=== PATIENT | male | born 1965 | race African-American/Black ===

== ENCOUNTER → 2016-06-19 | Outpatient (CLI) | payer BC ==
[~2016-06-19] MED LIST: ARGI1CAP2 PO; ARGI1TAB PO; CEPH500C PO; MULT-513 PO; OMEG10007 PO; SOLI10TA2 PO; TROS1CAP2 PO; VITAMIN C PO
[2016-06-19 12:46] LABS: URINE APPEARANCE CLOUDY (CLEAR); URINE BILIRUBIN NEG (NEG); URINE COLOR YELLOW; URINE EPITHELIAL CELL AUTO 0-5 /lpf (0-5); URINE NITRITE NEG (NEG); URINE SPECIFIC GRAVITY 1.017 (1.000-1.030); UROBILINOGEN NEG (NEG)
[2016-06-19 12:55] LABS: MANUAL MICROSCOPIC REQUIRED? NO; REVIEW REQ? YES
== END | disposition home or self-care (01) ==
LOC: C.LABBFT 07:32
PROVIDERS: ATTEND Internal Medicine
DX: R39.9 Unspecified symptoms and signs involving the genitourinary system (principal)

== ENCOUNTER → 2016-07-03 | Day surgery (SDC) | payer BC ==
[~2016-07-03] VITALS: Ht 134.6 cm; Wt 54.5 kg
[~2016-07-03] MED LIST changes: -ARGI1TAB PO; +LIDOCAINE HCL 2% 2 ML VIAL (20MG/ML) ONE; +PROPOFOL IV EMULSION 10 MG/ML 20 ML VIAL IV ONE; +SODIUM CHLORIDE 0.9% 500ML 500 ML IV ONE; -SOLI10TA2 PO
[2016-07-03 14:13] VITALS: Ht 134.6 cm; Wt 54.5 kg
[2016-07-03 14:21] VITALS: TEMP 37.4
--- NOTE | 2016-07-03 15:14 | Endo History and Physical ---
History & Physical Date of Service: July 03, 2016. Chief Complaint: screening Referring Physician: Dr. García History of Present Illness 51 yo AAM who presents for screening colonoscopy. Past Medical History Kidney Disease Past Surgical History Hx Cardiac Surgery: No Hx Internal Defibrillator: No Hx Pacemaker: No Hx Abdominal Surgery: No Hx Post-Op Nausea and Vomiting: No Hx Cancer Surgery: No Hx Thoracic Surgery: Yes (TOTAL 4 BACK SURGERIES/LAMINECTOMIES/DECOMPRESSION FUSION WITH INSTRUM.) Hx Orthopedic: No Hx Urinary Tract Surgery: Yes (LITHOTRIPSY) Family History Colon CA Social History Smoking Status: Never Smoker Hx Substance Use: No Hx Alcohol Use: Yes (RARELY) Allergies Coded Allergies: No Known Allergies (Verified , 07/03/16) Current Medications Reported Home Medications Medications Dose Route/Sig Max Daily Dose Days Date Category [Vitamin C] 1 Tab PO QAM 07/02/16 Reported Trospium Chloride Er (Trospium Chloride) 60 Mg Cap 1 Cap PO HS 07/02/16 Reported Mvi With Minerals (Multivitamins/Minerals) Tab 1 Tab PO QAM 08/19/12 Reported [place]-3 (Fish Oil) 1 Ea Cap 1 Cap PO TID 08/19/12 Reported Vital Signs Weight (Kilograms): 54.55 Height (Feet): 4 Height (Inches): 5 Date Time Temp Pulse Resp B/P Pulse Ox O2 Delivery O2 Flow Rate FiO2 07/03/16 14:21 37.4 95 22 145/75 98 Room Air Physical Exam General Appearance: WD/WN, no apparent distress Respiratory/Chest: Auscultation: breath sounds normal Cardiovascular: Heart Auscultation: RRR Abdomen: Bowel Sounds: normal Inspection & Palpation: soft, non-distended, no tenderness, guarding & rebound Assessment and Plan Assessment: 51 yo AAM who presents for screening colonoscopy. Plan: Proceed with colonoscopy.
--- NOTE | 2016-07-03 15:21 | GI REPORT ---
Procedure Date: 07/03/2016 2:39 PM Procedure: Colonoscopy Indications: Screening for colorectal malignant neoplasm Medicines: Monitored Anesthesia Care Complications: No immediate complications. Estimated Blood Loss: Estimated blood loss: none. Procedure: Pre-Anesthesia Assessment: - Prior to the procedure, a History and Physical was performed, and patient medications and allergies were reviewed. The patient's tolerance of previous anesthesia was also reviewed. The risks and benefits of the procedure and the sedation options and risks were discussed with the patient. All questions were answered, and informed consent was obtained. Prior Anticoagulants: The patient has taken no previous anticoagulant or antiplatelet agents. ASA Grade Assessment: II - A patient with mild systemic disease. After reviewing the risks and benefits, the patient was deemed in satisfactory condition to undergo the procedure. After I obtained informed consent, the scope was passed under direct vision. Throughout the procedure, the patient's blood pressure, pulse, and oxygen saturations were monitored continuously. The On-site loaner was introduced through the anus with the intention of advancing to the ileum. The scope was advanced to the rectum before the procedure was aborted. Medications were given. The colonoscopy was performed without difficulty. The patient tolerated the procedure well. The quality of the bowel preparation was unsatisfactory. No anatomical landmarks were photographed. Findings: A large amount of copious quantities of semi-solid solid stool was found in the rectum, precluding visualization. Lavage of the area was performed, resulting in incomplete clearance with continued poor visualization. Impression: - Preparation of the colon was unsatisfactory. - Stool in the rectum. - No specimens collected. Recommendation: - Resume previous diet. - Continue present medications. - No repeat colonoscopy, as patient has been unsuccessful with bowel prep on multiple occassions. Recommend yearly FIT testing for colorectal cancer surveillance. - Return to primary care physician as previously scheduled. Lan Mason DO 07/03/2016 3:21:28 PM This report has been signed electronically. Note Initiated On: 07/03/2016 2:39 PM I attest to the content of the Intraoperative Record and orders documented therein, exceptions below
--- NOTE | 2016-07-03 15:39 | Discharge Instructions ---
Endoscopy Patient Instructions Date / Procedure(s) Performed July 03, 2016. Colonoscopy Allergy Information Coded Allergies: No Known Allergies (Verified , 07/03/16) Discharge Date / Findings July 03, 2016. Poor bowel prep Medication Instructions OK to resume all medications today as prescribed Reported Home Medications Medications Dose Route/Sig Max Daily Dose Days Date Category [Vitamin C] 1 Tab PO QAM 07/02/16 Reported Trospium Chloride Er (Trospium Chloride) 60 Mg Cap 1 Cap PO HS 07/02/16 Reported Mvi With Minerals (Multivitamins/Minerals) Tab 1 Tab PO QAM 08/19/12 Reported [place]-3 (Fish Oil) 1 Ea Cap 1 Cap PO TID 08/19/12 Reported Provider Instructions Activity Restrictions - No exercising or heavy lifting for 24 hours. - Do not drink alcohol the day of the procedure. - Do not drive a car or operate machinery until the day after the procedure. - Do not make any important decisions or sign important papers in 24 hours after the procedure. Following Day: - Return to full activity which may include returning to work/school. Diet Start your diet with liquids and light foods (jello, soup, juice, toast). Then eat your usual diet if not nauseated. Treatment For Common After Affects For mild abdominal pain, bloating, or excessive gas: - Rest - Eat lightly - Lie on right side Follow-Up Information Follow-up with Dr. García as scheduled Anesthesia Information What You Should Know You have had a procedure that required some medicine to reduce anxiety and discomfort. This treatment is called moderate sedation. After receiving the treatment, you may be sleepy, but you will be able to breathe on your own. The effects of the treatment may last for several hours. Follow these instructions along with Activity/Diet recommendations noted above: * Do NOT do anything where dizziness or clumsiness would be dangerous. * Rest quietly at home today, then you can be up and about tomorrow. * Have a responsible person stay with you the rest of today. * You may have had an I.V. today. If so, you may take the dressing off later today. Recommendations Call your doctor if: * Trouble breathing * Continuous vomiting for more than 24 hours * Temperature above 101 degrees * Severe abdominal pain or bloating * Pain not relieved by pain medicine ordered * There is increased drainage or redness from any incision * A large amount of rectal bleeding greater than 2-3 tablespoons. (If you had a polyp/s removed or have hemorrhoids, a small amount of blood - from the rectum is to be expected.) * You have any unanswered questions or concerns. IN THE EVENT OF A SERIOUS EMERGENCY, GO TO THE NEAREST EMERGENCY ROOM Your discharge instructions were prepared by provider Lan Mason. Patient Instructions Signature Page Nasir Daniels Patient (or Guardian) Signature/Date: I have read and understand the instructions given to me by my caregivers. Caregiver/RN/Doctor Signature/Date: The above-named patient and/or guardian has received patient instructions on this date. + Original Patient Signature Page (only) stays with chart. Please make copy for patient.
--- NOTE | 2016-07-03 15:43 | Anesthesiology Progress Note ---
Anesthesia Post Op Note Date & Time July 03, 2016 at 15:43 Vital Signs Pain Intensity: 0 Vital Signs Past 12 Hours Date Time Temp Pulse Resp B/P Pulse Ox O2 Delivery O2 Flow Rate FiO2 07/03/16 15:30 92 18 121/80 100 Mask 9 07/03/16 14:21 37.4 95 22 145/75 98 Room Air Notes Mental Status: alert / awake / arousable, participated in evaluation Pt Amnestic to Procedure: Yes Nausea / Vomiting: adequately controlled Pain: adequately controlled Airway Patency, RR, SpO2: stable & adequate BP & HR: stable & adequate Hydration State: stable & adequate Anesthetic Complications: no major complications apparent
[2016-07-03 16:02] VITALS: BP 140/88; PULSE 94; O2SAT 95
== END | disposition home or self-care (01) ==
LOC: C.GI 13:29
PROVIDERS: ATTEND Internal Medicine
DX: Z12.11 Encounter for screening for malignant neoplasm of colon (principal); Z53.09 Procedure and treatment not carried out because of other contraindication; Z98.890 Other specified postprocedural states; Z80.0 Family history of malignant neoplasm of digestive organs

== ENCOUNTER 2016-09-18 19:00 | Emergency (ER) | payer BC ==
[~2016-09-18] VITALS: Ht 134.6 cm; Wt 55.0 kg
[~2016-09-18 19:00] MED LIST changes: -ARGI1CAP2 PO; -CEPH500C PO; -LIDOCAINE HCL 2% 2 ML VIAL (20MG/ML) ONE; -PROPOFOL IV EMULSION 10 MG/ML 20 ML VIAL IV ONE; -SODIUM CHLORIDE 0.9% 500ML 500 ML IV ONE
[2016-09-18 19:22] VITALS: TEMP 37.1; Ht 134.6 cm; Wt 55.0 kg
--- NOTE | 2016-09-18 19:49 | EMERGENCY ROOM VISIT NOTE ---
History Report prepared by Naren: Kassi Tapia Under the Supervision of: Dr. Abbey Vicente M.D. First contact with patient: 19:29 Chief Complaint: ABDOMINAL PAIN Stated Complaint: BLOOD IN URINE, LOW STRENGTH, NO APPETITE History of Present Illness The patient is a 51 year old male who presents to the Emergency Room with complaints of persistent nausea starting about a week ago. He denies vomiting. He also complains of chills but he is unsure about fevers. He notes some difficulty breathing. He reports generalized weakness. He reports urinary incontinence. He also has intermittent bowel incontinence but he has been wearing a diaper and is unsure if he has diarrhea. He recently had a stomach virus. The patient is unsure about any recent ill contacts. He was referred to the Emergency Room today by his PCP. He has a history of UTI and spinal stenosis. He denies abdominal pain, rash, or any other complaints. Source of History: patient Onset: about a week ago Position: other (global) Quality: other (nausea) Timing: other (persistent) Associated Symptoms: + chills, + SOB, + weakness, No vomiting, No abdominal pain, No rash Review of Systems See HPI for pertinent positives & negatives. A total of 10 systems reviewed and were otherwise negative. Past Medical & Surgical Medical Problems: (1) History of lithotripsy (2) Spinal stenosis Family History Patient reports no known family medical history. Social History Smoking Status: Never Smoker Marital Status: single Occupation Status: employed Current/Historical Medications Scheduled Arginine (L-Arginine), 500 MG PO BID Cephalexin Monohydrate (Keflex), 500 MG PO TID Fish Oil ([place]-3), 1 CAP PO TID Multivitamins/Minerals (Mvi With Minerals), 1 TAB PO QAM Trospium Chloride (Trospium Chloride Er), 60 MG PO HS Allergies Coded Allergies: No Known Allergies (Verified , 07/03/16) Physical Exam Vital Signs Date Time Temp Pulse Resp B/P (MAP) Pulse Ox O2 Delivery O2 Flow Rate FiO2 09/18/16 23:46 143/68 09/18/16 23:39 81 23 98 09/18/16 23:24 79 23 98 09/18/16 23:15 79 09/18/16 23:09 80 23 97 09/18/16 23:04 124/74 09/18/16 23:00 83 20 98 09/18/16 22:45 81 18 09/18/16 22:30 184 17 09/18/16 22:15 80 26 09/18/16 22:00 82 26 09/18/16 21:45 85 21 09/18/16 21:30 85 22 09/18/16 21:19 115/65 09/18/16 21:19 82 18 115/65 96 Room Air 09/18/16 21:15 86 22 09/18/16 21:00 92 30 09/18/16 20:45 81 22 09/18/16 20:30 84 25 09/18/16 20:22 84 09/18/16 19:22 37.1 92 16 124/85 97 Room Air Physical Exam Vital signs reviewed. General: Well-appearing, short statured, in no significant distress. HEENT: No scleral icterus, PERRLA, neck supple. Atraumatic. Cardiovascular: Regular rate and rhythm, no extra sounds. Pulmonary: Clear to auscultation bilaterally, normal work of breathing. Abdomen: Soft, nontender, mild abdominal distention, positive bowel sounds. Incontinent of urine with a pad on. Musculoskeletal: Atraumatic, no peripheral edema. Neurologic: Patient awake alert and oriented x 3 Skin: Warm, dry, no rash Medical Decision & Procedures ER Provider Diagnostic Interpretation: X-ray results as stated below per interpretation by me and the radiologist: CHEST ONE VIEW PORTABLE CLINICAL HISTORY: Fever. COMPARISON STUDY: Chest radiograph 12/19/2012. FINDINGS: Thoracolumbar spine hardware is partially imaged. There is no pneumothorax or pleural effusion. The left hemidiaphragm is partially obscured. Right lung is clear. Pulmonary vascularity is normal. Cardiac size is normal. The patient is mildly rotated. Deformity of the proximal bilateral humeri is chronic. IMPRESSION: Obscuration of the left hemidiaphragm. Artifact or atelectasis is favored although consolidation could appear similar. Follow-up PA and lateral chest radiographs in one month are recommended. Electronically signed by: Asif García M.D. 09/18/2016 8:34 PM Dictated Date/Time: 09/18/2016 8:31 PM Laboratory Results 09/18/16 19:45 Red Blood Count 5.44, Mean Corpuscular Volume 71.7, Mean Corpuscular Hemoglobin 22.6, Mean Corpuscular Hemoglobin Concent 31.5, Mean Platelet Volume 10.1, Neutrophils (%) (Auto) 79.2, Lymphocytes (%) (Auto) 11.4, Monocytes (%) (Auto) 7.2, Eosinophils (%) (Auto) 1.3, Basophils (%) (Auto) 0.2, Neutrophils # (Auto) 6.74, Lymphocytes # (Auto) 0.97, Monocytes # (Auto) 0.61, Eosinophils # (Auto) 0.11, Basophils # (Auto) 0.02 09/18/16 19:45 Test 09/18/16 19:45 09/18/16 20:10 09/18/16 20:14 09/18/16 21:10 White Blood Count 8.51 K/uL (4.8-10.8) Red Blood Count 5.44 M/uL (4.7-6.1) Hemoglobin 12.3 g/dL (14.0-18.0) Hematocrit 39.0 % (42-52) Mean Corpuscular Volume 71.7 fL (80-100) Mean Corpuscular Hemoglobin 22.6 pg (25-34) Mean Corpuscular Hemoglobin Concent 31.5 g/dl (32-36) Platelet Count 262 K/uL (130-400) Mean Platelet Volume 10.1 fL (7.4-10.4) Neutrophils (%) (Auto) 79.2 % Lymphocytes (%) (Auto) 11.4 % Monocytes (%) (Auto) 7.2 % Eosinophils (%) (Auto) 1.3 % Basophils (%) (Auto) 0.2 % Neutrophils # (Auto) 6.74 K/uL (1.4-6.5) Lymphocytes # (Auto) 0.97 K/uL (1.2-3.4) Monocytes # (Auto) 0.61 K/uL (0.11-0.59) Eosinophils # (Auto) 0.11 K/uL (0-0.5) Basophils # (Auto) 0.02 K/uL (0-0.2) RDW Standard Deviation 33.2 fL (36.4-46.3) RDW Coefficient of Variation 12.8 % (11.5-14.5) Immature Granulocyte % (Auto) 0.7 % Immature Granulocyte # (Auto) 0.06 K/uL (0.00-0.02) Red Blood Cell Morphology Unremarkable Anion Gap 7.0 mmol/L (3-11) Est Creatinine Clear Calc Drug Dose 64.7 ml/min Estimated GFR () 118.8 Estimated GFR (Non- 102.5 BUN/Creatinine Ratio 40.1 (10-20) Calcium Level 9.3 mg/dl (8.5-10.1) Magnesium Level 2.4 mg/dl (1.8-2.4) Total Bilirubin 0.5 mg/dl (0.2-1) Direct Bilirubin 0.1 mg/dl (0-0.2) Aspartate Amino Transf (AST/SGOT) 25 U/L (15-37) Alanine Aminotransferase (ALT/SGPT) 33 U/L (12-78) Alkaline Phosphatase 85 U/L (45-117) Total Creatine Kinase 333 U/L (39-308) Creatine Kinase MB 3.6 ng/ml (0.5-3.6) Creatine Kinase MB Ratio 1.1 (0-3.0) Total Protein 7.1 gm/dl (6.4-8.2) Albumin 3.0 gm/dl (3.4-5.0) Bedside Lactic Acid Venous 1.55 mmol/L (0.90-1.70) Bedside Troponin I < 0.030 ng/ml (0-0.045) Urine Color DK YELLOW Urine Appearance CLEAR (CLEAR) Urine pH 6.0 (4.5-7.5) Urine Specific [place] 1.023 (1.000-1.030) Urine Protein TRACE (NEG) Urine Glucose (UA) NEG (NEG) Urine Ketones 1+ (NEG) Urine Occult Blood 1+ (NEG) Urine Nitrite NEG (NEG) Urine Bilirubin NEG (NEG) Urine Urobilinogen POS (NEG) Urine Leukocyte Esterase MODERATE (NEG) Urine WBC (Auto) >30 /hpf (0-5) Urine RBC (Auto) 0-4 /hpf (0-4) Urine Hyaline Casts (Auto) 0 /lpf (0-5) Urine Epithelial Cells (Auto) >30 /lpf (0-5) Urine Bacteria (Auto) 1+ (NEG) Urine Renal Epithelial Cells /lpf (0-5) Date/Time Source Procedure Growth Status 09/18/16 21:10 Urine,Catheterized Urine Culture - Final NO GROWTH - LESS THAN 1,000 COLONIES/ML Complete Laboratory results per my review. Medications Administered Medications (Trade) Dose Ordered Sig/[place] Route Start Time Stop Time Status Last Admin Dose Admin Sodium Chloride 250 ml @ 999 mls/hr Q16M STAT IV 09/18/16 19:55 09/18/16 20:10 DC 09/18/16 20:39 999 MLS/HR Sodium Chloride 1,000 ml @ 125 mls/hr Q8H STAT IV 09/18/16 19:55 09/19/16 00:42 DC 09/18/16 20:40 125 MLS/HR Ceftriaxone Sodium (Rocephin Inj) 1 gm NOW STAT IV 09/18/16 22:45 09/18/16 22:46 DC 09/18/16 23:02 1 GM ECG Indication: nausea Rate (beats per minute): 84 Rhythm: normal sinus Findings: other (rightward axis; nonspecific ST changes; J point elevation; likely previous anterior infarct) Comparison ECG Date: August 19, 2012 Change: no significant change ED Course 1928: Past medical records reviewed. The patient was evaluated in room B04B. A complete history and physical examination was performed. 1954: Sodium Chloride 1000 ml @ 125 mls/hr IV, Sodium Chloride 250 ml @ 999 mls/ hr IV 5: Rocephin Inj 1 gm IV. Upon reevaluation, the patient appeared to have improvement of his symptoms. I discussed findings with him. He verbalized agreement of the treatment plan. He was discharged home. Medical Decision DDx: Influenza, other viral illness, pneumonia, urinary tract infection, metabolic abnormality, medication effect, cellulitis, meningitis, intra-abdominal source. This patient was evaluated and appeared to be in no significant distress. Laboratory evaluation is fairly unrevealing. The patient has a normal white blood cell count. Patient's urinalysis is questionable for infection although it is contaminated will be sent for culture. As the patient is incontinent of urine regularly, he will be treated with antibiotics. The patient was given 1 g of IV ceftriaxone. He will be discharged on Keflex. Patient was advised to use Tylenol for his pain or fever. He will follow-up with his primary care physician this week for reevaluation return to the ER for worsening of symptoms or any medical concerns. Medication Reconcilliation Current Medication List: was personally reviewed by me Blood Pressure Screening Patient's blood pressure: Normal blood pressure Impression Primary Impression: UTI (urinary tract infection) Scribe Attestation The scribe's documentation has been prepared under my direction and personally reviewed by me in its entirety. I confirm that the note above accurately reflects all work, treatment, procedures, and medical decision making performed by me. Departure Information Dispostion Home / Self-Care Prescriptions Cephalexin Monohydrate (Keflex) 500 Mg Cap 500 MG PO TID, #21 CAP Prov: Abbey Vicente M.D. 09/18/16 Referrals Radha García M.D. (PCP) Forms Call Back Authorization, HOME CARE DOCUMENTATION FORM, IMPORTANT VISIT INFORMATION Patient Instructions My [facility] [address] Additional Instructions Diagnosis: UTI Please drink plenty of clear fluids. Keflex 500 mg 3 times daily for 7 days. Follow-up with your physician this week for reevaluation. Return to the ER for worsening of symptoms or any medical concerns.
[2016-09-18] MEDS ORDERED: SODIUM CHLORIDE 0.9% 1000ML 1,000 ML IV STA (19:55)
[2016-09-18] MEDS ORDERED: SODIUM CHLORIDE 0.9% 250ML 250 ML IV STA (19:55)
[2016-09-18] MEDS ORDERED: ARGI1CAP2 PO (19:59)
[2016-09-18 20:21] LABS: BASO % 0.2 %; BASO ABS # 0.02 K/uL (0-0.2); EOS % 1.3 %; IG% 0.7 %; LYMPH % 11.4 %; LYMPH ABS # 0.97 K/uL (1.2-3.4); MEAN CELL VOLUME 71.7 fL (80-100); MEAN CORPUSCULAR HEMOGLOBIN 22.6 pg (25-34); MEAN CORPUSCULAR HGB CONC 31.5 g/dl (32-36); MEAN PLATELET VOLUME 10.1 fL (7.4-10.4); MONO % 7.2 %; NEUT % 79.2 %; PLATELET COUNT 262 K/uL (130-400); RED BLOOD COUNT 5.44 M/uL (4.7-6.1); WHITE BLOOD COUNT 8.51 K/uL (4.8-10.8)
--- NOTE | 2016-09-18 20:35 | DIAGNOSTIC IMAGING REPORT ---
CHEST ONE VIEW PORTABLE CLINICAL HISTORY: Fever. COMPARISON STUDY: Chest radiograph 12/19/2012. FINDINGS: Thoracolumbar spine hardware is partially imaged. There is no pneumothorax or pleural effusion. The left hemidiaphragm is partially obscured. Right lung is clear. Pulmonary vascularity is normal. Cardiac size is normal. The patient is mildly rotated. Deformity of the proximal bilateral humeri is chronic. IMPRESSION: Obscuration of the left hemidiaphragm. Artifact or atelectasis is favored although consolidation could appear similar. Follow-up PA and lateral chest radiographs in one month are recommended. Electronically signed by: Asif García M.D. 09/18/2016 8:34 PM Dictated Date/Time: 09/18/2016 8:31 PM
[2016-09-18 20:39] LABS: BUN/CREATININE RATIO 40.1 (10-20); CALCIUM 9.3 mg/dl (8.5-10.1); CREATININE 0.79 mg/dl (0.60-1.40); MAGNESIUM 2.4 mg/dl (1.8-2.4); POTASSIUM 3.8 mmol/L (3.5-5.1)
[2016-09-18 20:43] LABS: COMPLETE YES
[2016-09-18 20:44] LABS: CKMB/CK RATIO 1.1 (0-3.0)
[2016-09-18 21:34] LABS: URINE APPEARANCE CLEAR (CLEAR); URINE BILIRUBIN NEG (NEG); URINE COLOR DK YELLOW; URINE EPITHELIAL CELL AUTO >30 /lpf (0-5); URINE NITRITE NEG (NEG); URINE SPECIFIC GRAVITY 1.023 (1.000-1.030); UROBILINOGEN POS (NEG); ZZURINE CULT IF INDIC CATH YES
[2016-09-18 21:38] LABS: MANUAL MICROSCOPIC REQUIRED? NO; REVIEW REQ? YES
[2016-09-18] MEDS ORDERED: CEFTRIAXONE SOD INJ 1 GM ADDVIAL IV STA (22:45)
[2016-09-18] MEDS ORDERED: CEPH500C PO (22:46)
[2016-09-18 23:39] VITALS: PULSE 81; O2SAT 98
[2016-09-18 23:46] VITALS: BP 143/68
== END 2016-09-18 23:55 | disposition home or self-care (01) ==
LOC: C.EDB 19:02
DX: N39.0 Urinary tract infection, site not specified (principal); M48.00 Spinal stenosis, site unspecified; Z98.890 Other specified postprocedural states; Z87.440 Personal history of urinary (tract) infections; Z79.899 Other long term (current) drug therapy

== ENCOUNTER → 2016-10-16 | Outpatient (CLI) | payer BC ==
[~2016-10-16] MED LIST changes: +ARGI1CAP2 PO; +CEPH500C PO; -VITAMIN C PO
[2016-10-16 12:22] LABS: BASO % 0.8 %; BASO ABS # 0.03 K/uL (0-0.2); EOS % 6.2 %; HEMATOCRIT 40.7 % (42-52); IG% 0.8 %; LYMPH % 27.9 %; LYMPH ABS # 1.08 K/uL (1.2-3.4); MEAN CELL VOLUME 73.2 fL (80-100); MEAN CORPUSCULAR HEMOGLOBIN 23.4 pg (25-34); MEAN CORPUSCULAR HGB CONC 31.9 g/dl (32-36); MEAN PLATELET VOLUME 9.8 fL (7.4-10.4); MONO % 5.9 %; NEUT % 58.4 %; PLATELET COUNT 179 K/uL (130-400); RED BLOOD COUNT 5.56 M/uL (4.7-6.1); WHITE BLOOD COUNT 3.87 K/uL (4.8-10.8)
[2016-10-16 13:24] LABS: ANISOCYTOSIS PRESENT; COMPLETE YES; HYPOCHROMIA PRESENT; POIKILOCYTOSIS PRESENT
[2016-10-16 18:15] LABS: ALT/SGPT 26 U/L (12-78); BLOOD UREA NITROGEN 13 mg/dl (7-18); BUN/CREATININE RATIO 18.1 (10-20); CALCIUM 8.9 mg/dl (8.5-10.1); CARBON DIOXIDE 27 mmol/L (21-32); CHLORIDE 104 mmol/L (98-107); CREATININE 0.73 mg/dl (0.60-1.40); GLUCOSE 85 mg/dl (70-99); POTASSIUM 4.1 mmol/L (3.5-5.1); SODIUM 138 mmol/L (136-145)
[2016-10-16 18:20] LABS: ALB/GLOB RATIO 1.1 (0.9-2); ALKALINE PHOSPHATASE 93 U/L (45-117); AST/SGOT 20 U/L (15-37)
[2016-10-18 16:37] LABS: HCT 41.6 % (38.5-50.0); MCH 22.9 pg (27.0-33.0); MCV 73.2 FL (80.0-100.0); RBC 5.68 Mill/uL (4.20-5.80); RDW 14.4 % (11.0-15.0)
== END | disposition home or self-care (01) ==
LOC: C.LABBFT 11:13
PROVIDERS: ATTEND Internal Medicine
DX: Z00.00 Encounter for general adult medical examination without abnormal findings (principal); D50.9 Iron deficiency anemia, unspecified; R97.20 Elevated prostate specific antigen [PSA]; E78.5 Hyperlipidemia, unspecified